=== PATIENT | male | born 2000 | race Caucasian/White ===

== ENCOUNTER 2019-01-14 10:52 | Emergency (ER) | payer OTHER ==
[~2019-01-14] VITALS: Ht 172.7 cm; Wt 104.3 kg
[2019-01-14 11:05] VITALS: BP 124/78
--- NOTE | 2019-01-14 11:11 | NUR ---
Patient ambulated to bed 4. RN evaluating patient at bedside.
[2019-01-14] MEDS ORDERED: CLINDAMYCIN 600 MG/4 ML VIAL IM ONE (11:35)
[2019-01-14] MEDS ORDERED: DEXAMETHASONE 10 MG/ML VIAL IM ONE (11:35)
[2019-01-14 12:58] VITALS: BP 119/79
--- NOTE | 2019-01-14 12:59 | NUR ---
Patient discharged with v/s stable. Written and verbal after care instructions given and explained. Patient alert, oriented and verbalized understanding of instructions. Ambulatory with steady gait. All questions addressed prior to discharge. ID band removed. Patient advised to follow up with PMD. Rx of PREDNISONE/CLINDAMYCIN given. Patient educated on indication of medication including possible reaction and side effects. Opportunity to ask questions provided and answered.
== END 2019-01-14 12:59 | disposition home or self-care (01) ==
LOC: MED 10:52
DX: J03.90 Acute tonsillitis, unspecified (principal); R11.10 Vomiting, unspecified
CPT/HCPCS: 96372; 99283; J1100; J3490